=== PATIENT | male | born 1960 | race Hispanic/Latino ===

== ENCOUNTER → 2021-04-23 | Outpatient (CLI) | payer BC | LOC: US 12:06 | PROVIDERS: ATTEND Internal Medicine Gastroenterology | DX: R10.11 Right upper quadrant pain (principal); R14.0 Abdominal distension (gaseous); R12 Heartburn | CPT/HCPCS: 76700; 78227; A9537 ==

== ENCOUNTER → 2021-05-08 | Day surgery (SDC) | payer BC ==
[~2021-05-08] MED LIST: BENICAR20 MG PO; CLARITIN10 MG PO; FENTANYL CITRATE/PF 100MCG/2 ML INJ ONE; GLIMEPIRIDE2 MG PO; HYOSCYAMINE SULFATE 0.5 MG/ML INJ ONE; JANUVIA25 MG PO; METFORMIN HCL500 MG PO; MIDAZOLAM HCL 2 MG/2 ML VIAL ONE; PROPOFOL IV EMULSION 10 MG/ML 20 ML VIAL ONE
[2021-05-08 11:04] VITALS: BP 113/79
== END | disposition home or self-care (01) ==
LOC: OR 07:00
PROVIDERS: ATTEND Internal Medicine Gastroenterology
DX: D12.2 Benign neoplasm of ascending colon (principal); K20.90 Esophagitis, unspecified without bleeding; K22.2 Esophageal obstruction; K64.8 Other hemorrhoids; K29.51 Unspecified chronic gastritis with bleeding; K59.00 Constipation, unspecified; R13.10 Dysphagia, unspecified; K59.09 Other constipation; Z68.36 Body mass index [BMI] 36.0-36.9, adult; I10 Essential (primary) hypertension; Z01.810 Encounter for preprocedural cardiovascular examination; Z01.812 Encounter for preprocedural laboratory examination; Z20.822 Contact with and (suspected) exposure to COVID-19
CPT/HCPCS: 36415; 43239; 43450; 45385; 82948; 93005; C9113; J1980; J2250; J2704; J3010; U0002; 45378; 45384